=== PATIENT | male | born 1980 | race African-American/Black ===

== ENCOUNTER 2019-09-09 07:24 | Day surgery (SDC) | payer OTHER ==
[2019-09-08 15:23] VITALS: BMI 33.5
[2019-09-09] MEDS ORDERED: MIDAZOLAM HCL 2 MG/2 ML SINGLE DOSE VIAL ONE (10:31)
[2019-09-09] MEDS ORDERED: PROPOFOL 20 ML ONE ×3 (10:31→11:04)
[2019-09-09] MEDS ORDERED: BUPIVACAINE HCL/PF 0.5% (5 MG/ML) 30 ML VIAL IJ ONE (10:54)
[2019-09-09] MEDS ORDERED: LIDOCAINE HCL 1%, 10 MG/ML (20ML VIAL) PNB ONE (10:57)
[2019-09-09] MEDS ORDERED: oxyCODONE HCL 5 MG TABLET PO PRN ×2 (12:33)
[2019-09-09] MEDS ORDERED: ONDANSETRON 4 MG/2 ML VIAL IVPUSH PRN (12:33)
[2019-09-09] MEDS ORDERED: LACTATED RINGERS SOLUTION 1,000 ML IV SCH (12:45)
[2019-09-09 13:00] VITALS: TEMP 98
[2019-09-09 13:24] VITALS: BP 134/72; PULSE 80
--- NOTE | 2019-09-19 08:46 | OP ---
DATE OF OPERATION: 09/09/2019 PREOPERATIVE DIAGNOSIS: Right leg pain, right foot pain, status post CRPS_. POSTOPERATIVE DIAGNOSIS: Right leg pain, right foot pain, status post CRPS____. PROCEDURE: Right lumbar sympathetic block at L3 level. ANESTHESIA: Local and MAC. PROCEDURE: I discussed with him about risks, benefits, and alternatives of treatment, not only limited to infection, fever, injury to blood vessels or nerves, swelling, hematoma, paralysis, anything can happen. Patient understood, agreed, and signed the written consent. The patient was placed in the prone position. Head, abdomen, and legs supported with pillows. The patient was given monitored anesthesia. At the level of the L3 level, local anesthesia was given to the skin and subcutaneous tissue. A spinal needle was used to approach the L3 sympathetic block in front of the marked L3 anterolateral aspect on the right side. Aspiration was negative with blood. Contrast was injected and flow was checked under fluoroscopy. After negative aspiration, 15 mL of 0.25% Marcaine was injected at this level. Needle was withdrawn, bleeding was checked, sterile bandage was placed. Patient tolerated the procedure well. There was no immediate complication. Patient was transferred to recovery room. Patient was observed and asked about pain level. He mentioned there was improvement only. Patient was discharged as ASU criteria. Patient was told to apply ice. If any problem, call me or report to ER. A followup appointment was given. EVERETT KING M.D. [id number] MTDD
== END 2019-09-09 12:50 | disposition home or self-care (01) ==
LOC: JASU-SURG 07:24
PROVIDERS: ATTEND Physical Medicine & Rehabilitation
PROC: 3E0T3BZ Introduction of Anesthetic Agent into Peripheral Nerves and Plexi, Percutaneous Approach (ICD-10-PCS; principal; 2019-09-09 09:00)
DX: M79.671 Pain in right foot (principal); M79.604 Pain in right leg
CPT/HCPCS: 76000-TC-FY; 94760